=== PATIENT | female | born 1965 ===

== ENCOUNTER 2017-11-12 13:09 | Emergency (ER) | payer OTHER ==
[2017-11-12 13:09] VITALS: BMI 32.1
[2017-11-12] MEDS ORDERED: Lidocaine 1% Inj (20ml) IJ ONE (13:42)
[2017-11-12] MEDS ORDERED: Povidone Iodine Topical 10% Sol TOP ONE (13:43)
[2017-11-12] MEDS ORDERED: Povidone Iodine Oint 10% Foilpak UD ONE (13:45)
[2017-11-12] MEDS ORDERED: Lidocaine 2% w Epi 1:100,000 Inj IJ ONE (13:46)
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
[2017-11-12 15:03] VITALS: BP 145/82; PULSE 85; RESP 16; TEMP 98.2
[2017-11-12 15:06] VITALS: O2SAT 97
[2017-11-12 15:24] LABS: BASO # 0.1 K/uL (0.0-0.2); BASO % 0.7 % (0.0-2.0); EOS # 0.1 K/uL (0.0-0.7); EOS % 1.5 % (0.0-4.0); HEMOGLOBIN 13.2 g/dL (12.0-16.0); LYMPH # 2.1 K/uL (1.0-4.3); LYMPH % 21.5 % (20.0-40.0); MEAN CELL VOLUME 84.6 fl (81.0-99.0); MEAN CORPUSCULAR HEMOGLOBIN 28.2 pg (27.0-31.0); MEAN CORPUSCULAR HGB CONC 33.3 g/dL (33.0-37.0); MONO # 1.1 K/uL (0.0-0.8); MONO % 10.7 % (0.0-10.0); NEUT # 6.5 K/uL (1.8-7.0); NEUT % 65.6 % (50.0-75.0); PLATELET COUNT 194 K/uL (130-400); RED CELL DISTRIBUTION WIDTH 14.1 % (11.5-14.5); WHITE BLOOD COUNT 9.9 K/uL (4.8-10.8)
[2017-11-12 15:59] LABS: FLUID TYPE SYNOVIAL FLUID
[2017-11-12 16:25] LABS: ERYTHROCYTE SEDIMENTATION RATE 18 mm/hr (0-30)
[2017-11-12 17:04] LABS: SF GROSS APPEARANCE BLOODY (CLEAR)
[2017-11-12 17:05] LABS: SYNOVIAL FLUID COMMENT BLOODY
[2017-11-12 17:06] LABS: SYNOVIAL FLUID MONO/MACROPHAGE 12 % (0-0)
--- NOTE | 2017-11-13 02:18 | CON ---
Copied To: Micheline Kim MD Attending MD: Micheline Kim MD DATE: 11/12/2017 ER CONSULTATION NOTE. CHIEF COMPLAINT: Left knee swelling. HISTORY OF PRESENT ILLNESS: The patient is a 52-year-old female with a history of a symptomatic left total knee replacement, recurrent effusion. The patient has persistent pain and effusion despite physical therapy. Denies any fever or chills. She was examined at bedside. Denies any recent history of trauma or fall and complains of recurrent effusions. Denies any significant instability. PHYSICAL EXAMINATION VITAL SIGNS: The patient is afebrile. Vital signs are stable. EXTREMITIES: On examination, left knee trace effusion, range of motion is 0 to 120, stable to varus and valgus stress, tenderness to palpation in the medial joint line. Neurovascularly intact distally. ASSESSMENT: A 52-year-old female, status post left total knee replacement with symptomatic recurrent effusion. PROCEDURE: I presented the patient with the risks and benefits of the left knee aspiration to rule out any signs of infection or inflammatory markers. The risks included, but not limited to bleeding, infection, neurovascular damage, continued pain. The patient agreed with the risks and benefits and opted to proceed. First the skin was cleaned using Betadine sticks under sterile condition. Using an 18-gauge needle, 10 mL of serosanguineous fluid was aspirated and sent for cultures and cell count. TREATMENT: I explained to the patient, we will await for the cultures and cell count. Meanwhile, symptomatic treatment of antiinflammatory medication, icing, and we will follow up the results for further treatment and recommendations. Micheline Kim MD [facility]
== END 2017-11-12 15:03 | disposition home or self-care (01) ==
LOC: H.ER 13:09
DX: M25.462 Effusion, left knee (principal); Z96.652 Presence of left artificial knee joint; I10 Essential (primary) hypertension

== ENCOUNTER 2017-11-16 06:40 | Inpatient (IN) | payer OTHER ==
[2017-11-15 17:37] VITALS: BMI 34.2
[2017-11-16 08:53] LABS: BASO % 0.4 % (0.0-2.0); EOS # 0.2 K/uL (0.0-0.7); EOS % 1.8 % (0.0-4.0); HEMOGLOBIN 12.8 g/dL (12.0-16.0); LYMPH # 2.2 K/uL (1.0-4.3); LYMPH % 23.3 % (20.0-40.0); MEAN CELL VOLUME 84.5 fl (81.0-99.0); MEAN CORPUSCULAR HEMOGLOBIN 28.1 pg (27.0-31.0); MEAN CORPUSCULAR HGB CONC 33.2 g/dL (33.0-37.0); MONO # 1.1 K/uL (0.0-0.8); MONO % 11.7 % (0.0-10.0); NEUT % 62.8 % (50.0-75.0); NRBC % 0.1 % (0.0-0.0); RBC 4.56 Mil/uL (3.80-5.20); RED CELL DISTRIBUTION WIDTH 13.8 % (11.5-14.5); WHITE BLOOD COUNT 9.5 K/uL (4.8-10.8)
[2017-11-16] MEDS ORDERED: ceFAZolin IV 1 gm in Dextrose 2 GM/100 ML BAG IVPB ONE ×2 (12:03→12:48)
[2017-11-16] MEDS ORDERED: Bacitracin Ointment 30 GM TUBE ONE (12:48)
[2017-11-16] MEDS ORDERED: Gentamicin 80 mg/2mL Inj. ONE (12:48)
[2017-11-16] MEDS ORDERED: GELATIN SPONGE,ABSORB/PORCINE 1 EACH SPONGE TP ONE (12:49)
[2017-11-16] MEDS ORDERED: Thrombin Topical 5,000 Int Units Spray Kit ONE (12:49)
[2017-11-16] MEDS ORDERED: Lactated Ringer's 1,000 ML IV ONE ×2 (13:13→16:00)
[2017-11-16] MEDS ORDERED: Midazolam 2 MG/2 ML VIAL ONE (13:20)
[2017-11-16] MEDS ORDERED: Etomidate 20 mg/10ml Inj IV ONE (13:57)
[2017-11-16] MEDS ORDERED: Labetalol 5mg/ml (4ml) ONE (14:44)
[2017-11-16] MEDS ORDERED: Vancomycin 1 g Inj IVPB ONE (15:25)
[2017-11-16] MEDS ORDERED: Absorbable Gelatin Sponge Size 12-7 TP ONE (16:00)
[2017-11-16] MEDS ORDERED: ePHEDrine 50 mg/ml Inj ONE (16:03)
[2017-11-16] MEDS ORDERED: HYDROmorphone 1 mg/ml ISec ONE ×5 (17:09→18:40)
[2017-11-16] MEDS: HYDROmorphone 1 mg/ml ISec IVP PRN ×5 (17:10→18:40)
--- NOTE | 2017-11-16 17:11 | PCM.SURG1 ---
Surgeon's Initial Post Op Note - Surgeon's Notes Surgeon: Micheline Kim MD Network Contractor: Bharati Fuentes PA-C; Mario Stern PA-C Type of Anesthesia: General Endo Pre-Operative Diagnosis: Left knee total replacement hardware loosening/ infection Operative Findings: see op report Post-Operative Diagnosis: same as pre-op dx Operation Performed: Left knee removal of hardware, I&D and placement of antibiotic spacer Specimen/Specimens Removed: left knee soft tissue Estimated Blood Loss: EBL {In ML}: 250 Date of Surgery/Procedure: 11/16/17 Time of Surgery/Procedure: 14:00
--- NOTE | 2017-11-16 18:11 | RAD ---
Date of service: 11/16/2017 PROCEDURE: Left Knee Radiographs. HISTORY: Pain. COMPARISON: None. FINDINGS: BONES: Patient status post left knee replacement hardware removal with antibiotic spacers in position at this time. Normal alignment is appreciated overall. Postop soft tissue changes are identified which drain identified at the suprapatellar bursa region. JOINTS: As above. JOINT EFFUSION: As above. OTHER FINDINGS: None. IMPRESSION: Status post left knee replacement hardware removal with antibiotic spacers in position at this time. Postop changes as discussed above. No definitive fracture or dislocation identified at this time.
[2017-11-16] MEDS ORDERED: ceFAZolin IV 1 gm in Dextrose 1 GM/50 ML BAG IVPB ONE (20:00)
[2017-11-17] MEDS ORDERED: DAPTOmycin 500 MG in Sodium Chloride 0.9% 100 ML IVPB SCH ×2 (00:02→00:30)
[2017-11-17] MEDS: Cefepime 1 GM in Sodium Chloride 0.9% 100 ML IVPB SCH ×3 (01:24→16:57)
[2017-11-17] MEDS ORDERED: ceFAZolin IV 1 gm in Dextrose 1 GM/50 ML BAG IVPB ONE (02:00)
[2017-11-17] MEDS: DAPTOmycin 500 MG in Sodium Chloride 0.9% 100 ML IVPB SCH (03:10)
[2017-11-17] MEDS: Lactated Ringer's 1,000 ML IV SCH ×5 (03:15→23:15)
--- NOTE | 2017-11-17 03:50 | OP ---
Copied To: Micheline Kim MD Attending MD: Micheline Kim MD PROCEDURE DATE: 11/16/2017 PREOPERATIVE DIAGNOSES: 1. Left knee effusion and instability after total knee replacement. 2. Left knee infection after knee replacement. POSTOPERATIVE DIAGNOSES: 1. Left knee effusion and instability after total knee replacement. 2. Left knee infection after knee replacement. PROCEDURES: 1. Left knee arthrotomy and removal of previous total knee implant prosthesis. 2. Open synovectomy. 3. Antibiotic spacer/implants placement. SURGEON: Micheline Kim MD REAL ESTATE LEGAL SECRETARY: Bharati Fuentes PA-C ANESTHESIA TYPE: General. ESTIMATED BLOOD LOSS: 100 mL. COMPLICATIONS: None. HISTORY: The patient is a 52-year-old female who underwent left total knee replacement about 8 years ago. The patient had persistent pain and swelling, underwent bone scan which showed uptake, suggestive of loosening, which was confirmed by CT scan. The patient underwent aspiration in the ER which was suspicious for infection, and antiinflammatory markers were increased. I discussed with the patient. We will proceed with removal of prosthesis and antibiotic spacer placement. I reviewed the risks and benefits with the patient in detail, which included bleeding, infection, nerve/vessel damage, continued pain, stiffness, instability, infection, blood clots among others. The patient fully understood the risks and benefits and opted to proceed with the surgery. DESCRIPTION OF PROCEDURE: On the day of the procedure, the patient was brought into the preop holding area. A laterality sheet was completed, confirming the patient's left knee to be correct operative site. Informed consent was signed from the patient. She was brought into operating room table. She underwent general anesthesia. The left knee was draped and prepped in a standard sterile manner. First, a timeout was completed confirming the patient's left knee to be the correct operative site. First, the tourniquet was inflated to 350 mmHg. We will proceed with previous midline incision. Using a 10-blade, a standard medial parapatellar arthrotomy was formed. Multiple wound cultures and synovial cultures were sent. Next, we proceeded with a complete synovectomy using electrocautery. The knee joint was exposed, first the tibial using extreme caution. Multiple tools were used to remove the cement mantle. The cement mantle was in tibia and femoral prosthesis. The polyethylene insert was also removed, and after multiple attempts, the both implants femoral, patellar, and tibial components were removed. Next, the remaining cement mantle was also removed. The wound was copiously irrigated using 9 liters of pulse lavage solution on the back table, and Exactech spacer was used and replaced with vancomycin and gentamicin cement for temporary femoral and tibial plate with the spacer. Next, the wound was copiously irrigated. A Hemovac drain was placed. The arthrotomy was closed with monofilament sutures. The patient was placed in knee immobilizer, awakened from anesthesia, and taken to recovery room. Bharati Fuentes, the certified physician television production assistant, who was present for the entirety of the case as her participation was crucial in patient positioning, retraction of critical neurovascular structures, and successful completion of the surgery. Micheline Kim MD [facility]
[2017-11-17 07:28] LABS: BASO # 0.1 K/uL (0.0-0.2); BASO % 0.5 % (0.0-2.0); EOS # 0.1 K/uL (0.0-0.7); EOS % 0.5 % (0.0-4.0); HEMOGLOBIN 9.4 g/dL (12.0-16.0); LYMPH # 1.7 K/uL (1.0-4.3); LYMPH % 16.3 % (20.0-40.0); MEAN CELL VOLUME 84.4 fl (81.0-99.0); MEAN CORPUSCULAR HEMOGLOBIN 28.4 pg (27.0-31.0); MEAN CORPUSCULAR HGB CONC 33.7 g/dL (33.0-37.0); MEAN PLATELET VOLUME 10.8 fl (7.2-11.7); MONO # 1.2 K/uL (0.0-0.8); MONO % 11.8 % (0.0-10.0); NEUT # 7.3 K/uL (1.8-7.0); NEUT % 70.9 % (50.0-75.0); RBC 3.3 Mil/uL (3.80-5.20); WHITE BLOOD COUNT 10.3 K/uL (4.8-10.8)
[2017-11-17 07:45] LABS: ALB/GLOB RATIO 1.2 (1.0-2.1); ALBUMIN 3.1 g/dL (3.5-5.0); ALT/SGPT 90 U/L (9-52); AST/SGOT 74 U/L (14-36); BLOOD UREA NITROGEN 10 mg/dl (7-17); CALCIUM 8.1 mg/dL (8.4-10.2); GFR NON-AFRICAN AMERICAN > 60
[2017-11-17] MEDS: oxyCODONE 5 mg Immediate Release Tab PO PRN ×2 (08:37→16:51)
[2017-11-17] MEDS: Pantoprazole 40 mg EC Tab PO SCH (10:28)
[2017-11-17] MEDS ORDERED: Oxycodone/Acetaminophen 5/325 mg Tab PO PRN (10:30)
--- NOTE | 2017-11-17 15:49 | CP.PCM.PN ---
Subjective - Date & Time of Evaluation Date of Evaluation: 11/17/17 Time of Evaluation: 15:30 - Subjective Subjective: 52 yo F s/p Left knee TKR removal of hardware, I&D and placement of abx spacer POD#1 Pt seen and examined at bedside, comfortable, in NAD Pt c/o moderate left knee pain Pt denies any SOB, chest pain, fever/chills, lightheadedness, N/V/D, numbness/ tingling LLE Objective - Vital Signs/Intake and Output Vital Signs (last 24 hours): Temp Pulse Resp BP Pulse Ox 99.2 F 103 H 20 134/82 97 11/17/17 08:31 11/17/17 11:08 11/17/17 08:31 11/17/17 08:31 11/17/17 11:08 Intake and Output: 11/17/17 11/17/17 06:59 18:59 Intake Total 50 Output Total 125 Balance -75 - Medications Medications: Current Medications Acetaminophen (Tylenol 325mg Tab) 325 mg PO Q4 PRN PRN Reason: pain1-3 Aspirin (Aspirin) 325 mg PO BID [facility] Last Admin: 11/17/17 10:12 Dose: 325 mg Docusate Sodium (Colace) 100 mg PO BID [facility] Last Admin: 11/17/17 10:13 Dose: 100 mg Hydromorphone HCl (Dilaudid 0.2 Mg/Ml Project Associate) 0 mg IV PRN PRN; Protocol PRN Reason: Pain, moderate (4-7) Last Admin: 11/17/17 10:58 Dose: 0.2 mg Lactated Ringer's (Lactated Ringer's) 1,000 mls @ 100 mls/hr IV .Q10H [facility] Last Admin: 11/17/17 06:19 Dose: 100 mls/hr Cefepime HCl 1 gm/ Sodium (Chloride) 100 mls @ 100 mls/hr IVPB Q8 [facility] PRN Reason: Protocol Last Admin: 11/17/17 10:13 Dose: 100 mls/hr Daptomycin 500 mg/ Sodium (Chloride) 100 mls @ 100 mls/hr IVPB DAILY@0300 [facility] PRN Reason: Protocol Stop: 11/22/17 00:31 Last Admin: 11/17/17 03:10 Dose: 100 mls/hr Naproxen (Naproxen) 500 mg PO BID [facility] Oxycodone HCl (Oxycodone Immediate Release Tab) 5 mg PO Q4 PRN PRN Reason: pain4-7 Last Admin: 11/17/17 08:37 Dose: 5 mg Pantoprazole Sodium (Protonix Ec Tab) 40 mg PO DAILY [facility] Last Admin: 11/17/17 10:28 Dose: 40 mg - Labs Labs: 11/17/17 05:30 11/17/17 05:30 - Constitutional Appears: Well, No Acute Distress - Respiratory Exam Respiratory Exam: Clear to Ausculation Bilateral, NORMAL BREATHING PATTERN - Cardiovascular Exam Cardiovascular Exam: REGULAR RHYTHM, RRR - Extremities Exam Additional comments: LLE: Immobilizer in place Dressing C/D/I, PICCO dressing functioning well Drain in place, functioning well, 50cc bloody output Calves soft and nontender b/l Distal pulses wnl No foot drop Normal ROM left ankle Assessment and Plan - Assessment and Plan (Free Text) Assessment: 52 yo F s/p Left knee TKR removal of hardware, I&D and placement of abx spacer POD#1 Plan: Pain Control DVT ppx- aspirin 325mg BID SCD b/l LE Incentive Spirometer PT/OT - NWB LLE, keep in knee immobilizer Continue abx- ID recs appreciated F/U labs and cultures; h/h stable Continue current management Will follow Discussed with Dr. Kim
[2017-11-17] MEDS: Naproxen 500 MG TAB PO SCH (16:54)
[2017-11-17] MEDS: oxyCODONE 10 mg ER Tab (oxyCONTIN) PO SCH (20:24)
[2017-11-18] MEDS: Cefepime 1 GM in Sodium Chloride 0.9% 100 ML IVPB SCH ×3 (00:39→16:53)
[2017-11-18] MEDS: oxyCODONE 5 mg Immediate Release Tab PO PRN ×2 (00:39→04:11)
[2017-11-18] MEDS: DAPTOmycin 500 MG in Sodium Chloride 0.9% 100 ML IVPB SCH (03:04)
[2017-11-18 06:57] LABS: BASO % 0.3 % (0.0-2.0); EOS # 0.1 K/uL (0.0-0.7); EOS % 1.1 % (0.0-4.0); HEMOGLOBIN 8.5 g/dL (12.0-16.0); LYMPH # 1.6 K/uL (1.0-4.3); LYMPH % 16.2 % (20.0-40.0); MEAN CORPUSCULAR HEMOGLOBIN 28.7 pg (27.0-31.0); MEAN CORPUSCULAR HGB CONC 34.2 g/dL (33.0-37.0); MEAN PLATELET VOLUME 10.6 fl (7.2-11.7); MONO # 1.3 K/uL (0.0-0.8); MONO % 12.9 % (0.0-10.0); NEUT # 6.8 K/uL (1.8-7.0); NEUT % 69.5 % (50.0-75.0); RBC 2.96 Mil/uL (3.80-5.20); RED CELL DISTRIBUTION WIDTH 13.9 % (11.5-14.5); WHITE BLOOD COUNT 9.7 K/uL (4.8-10.8)
[2017-11-18 07:56] LABS: BLOOD UREA NITROGEN 4 mg/dl (7-17); CALCIUM 8.3 mg/dL (8.4-10.2); GFR NON-AFRICAN AMERICAN > 60
[2017-11-18] MEDS ORDERED: oxyCODONE 10 mg Immediate Release Tab PO STA (08:05)
[2017-11-18] MEDS: Naproxen 500 MG TAB PO SCH ×2 (08:17→16:50)
[2017-11-18] MEDS: Pantoprazole 40 mg EC Tab PO SCH (08:17)
[2017-11-18] MEDS: oxyCODONE 10 mg ER Tab (oxyCONTIN) PO SCH ×2 (08:43→21:18)
[2017-11-18] MEDS: Lactated Ringer's 1,000 ML IV SCH ×2 (08:50→19:15)
[2017-11-18] MEDS: oxyCODONE 10 mg Immediate Release Tab PO PRN ×2 (13:00→16:56)
[2017-11-18] MEDS ORDERED: Potassium Chloride 20 mEq ER Tab PO ONE (20:30)
[2017-11-19] MEDS: Cefepime 1 GM in Sodium Chloride 0.9% 100 ML IVPB SCH ×3 (01:14→16:06)
[2017-11-19] MEDS: DAPTOmycin 500 MG in Sodium Chloride 0.9% 100 ML IVPB SCH (03:12)
[2017-11-19 06:16] LABS: BASO % 0.4 % (0.0-2.0); EOS # 0.2 K/uL (0.0-0.7); EOS % 2.7 % (0.0-4.0); HEMOGLOBIN 7.8 g/dL (12.0-16.0); LYMPH # 2.2 K/uL (1.0-4.3); LYMPH % 24.4 % (20.0-40.0); MEAN CELL VOLUME 85.1 fl (81.0-99.0); MEAN CORPUSCULAR HEMOGLOBIN 28.5 pg (27.0-31.0); MEAN CORPUSCULAR HGB CONC 33.5 g/dL (33.0-37.0); MEAN PLATELET VOLUME 10.6 fl (7.2-11.7); MONO # 1.3 K/uL (0.0-0.8); MONO % 14.7 % (0.0-10.0); NEUT # 5.1 K/uL (1.8-7.0); NEUT % 57.8 % (50.0-75.0); RBC 2.75 Mil/uL (3.80-5.20); RED CELL DISTRIBUTION WIDTH 14.2 % (11.5-14.5); WHITE BLOOD COUNT 8.9 K/uL (4.8-10.8)
[2017-11-19 06:36] LABS: BLOOD UREA NITROGEN 7 mg/dl (7-17); CALCIUM 8.3 mg/dL (8.4-10.2); GFR NON-AFRICAN AMERICAN > 60
[2017-11-19] MEDS: Lactated Ringer's 1,000 ML IV SCH (06:58)
[2017-11-19] MEDS: oxyCODONE 10 mg ER Tab (oxyCONTIN) PO SCH ×2 (08:41→21:36)
[2017-11-19] MEDS: Pantoprazole 40 mg EC Tab PO SCH (08:42)
[2017-11-19] MEDS: Naproxen 500 MG TAB PO SCH ×2 (08:48→16:08)
[2017-11-19] MEDS: Potassium Chloride 20 mEq ER Tab PO SCH (08:48)
[2017-11-19 09:44] LABS: FLUID CRYSTALS NEGATIVE (NEGATIVE)
[2017-11-19] MEDS: oxyCODONE 10 mg Immediate Release Tab PO PRN ×2 (10:28→16:35)
--- NOTE | 2017-11-19 10:36 | CP.PCM.PN ---
Subjective - Date & Time of Evaluation Date of Evaluation: 11/19/17 Time of Evaluation: 08:30 - Subjective Subjective: Patient seen and examined at bedside comfortable. Pain well controlled. Has not seen PT over weekend due to high BP and dizziness. Reports no CP/SOB/dizziness today. No acute events overnight. Objective - Vital Signs/Intake and Output Vital Signs (last 24 hours): Temp Pulse Resp BP Pulse Ox 98.4 F 91 H 20 136/81 97 11/19/17 08:21 11/19/17 08:49 11/19/17 08:21 11/19/17 08:49 11/19/17 08:21 - Medications Medications: Current Medications Acetaminophen (Tylenol 325mg Tab) 325 mg PO Q4 PRN PRN Reason: pain1-3 Amlodipine Besylate (Norvasc) 5 mg PO DAILY [facility] Last Admin: 11/19/17 08:49 Dose: 5 mg Aspirin (Aspirin) 325 mg PO BID [facility] Last Admin: 11/19/17 08:44 Dose: 325 mg Carvedilol (Coreg) 25 mg PO BID [facility] Last Admin: 11/19/17 08:46 Dose: 25 mg Cyclobenzaprine HCl (Flexeril) 10 mg PO HS PRN PRN Reason: Muscle spasm Docusate Sodium (Colace) 100 mg PO BID [facility] Last Admin: 11/19/17 08:45 Dose: 100 mg Ferrous Sulfate (Feosol) 325 mg PO DAILY [facility] Last Admin: 11/19/17 08:48 Dose: 325 mg Lactated Ringer's (Lactated Ringer's) 1,000 mls @ 100 mls/hr IV .Q10H [facility] Last Admin: 11/19/17 06:58 Dose: Not Given Cefepime HCl 1 gm/ Sodium (Chloride) 100 mls @ 100 mls/hr IVPB Q8 [facility] PRN Reason: Protocol Last Admin: 11/19/17 08:50 Dose: 100 mls/hr Daptomycin 500 mg/ Sodium (Chloride) 100 mls @ 100 mls/hr IVPB DAILY@0300 [facility] PRN Reason: Protocol Stop: 11/22/17 00:31 Last Admin: 11/19/17 03:12 Dose: 100 mls/hr Losartan Potassium (Cozaar) 50 mg PO DAILY [facility] Last Admin: 11/19/17 08:47 Dose: 50 mg Naproxen (Naproxen) 500 mg PO BID [facility] Last Admin: 11/19/17 08:48 Dose: 500 mg Oxycodone HCl (Oxycodone Immediate Release Tab) 5 mg PO Q4 PRN PRN Reason: pain4-7 Last Admin: 11/18/17 04:11 Dose: 5 mg Oxycodone HCl (Oxycontin Extended Release Tab) 10 mg PO Q12 [facility] Stop: 11/30/17 21:01 Last Admin: 11/19/17 08:41 Dose: 10 mg Oxycodone HCl (Oxycodone Immediate Release Tab) 10 mg PO Q4 PRN PRN Reason: Pain, severe (8-10) Last Admin: 11/19/17 10:28 Dose: 10 mg Pantoprazole Sodium (Protonix Ec Tab) 40 mg PO DAILY [facility] Last Admin: 11/19/17 08:42 Dose: 40 mg Potassium Chloride (K-Dur 20 Meq Er Tab) 20 meq PO DAILY [facility] Last Admin: 11/19/17 08:48 Dose: 20 meq Zolpidem Tartrate (Ambien) 5 mg PO HS PRN PRN Reason: Insomnia Last Admin: 11/18/17 22:18 Dose: 5 mg - Labs Labs: 11/19/17 05:40 11/19/17 05:40 - Extremities Exam Additional comments: L knee: knee imm intact, ANTWON soaked with bloody drainage, drain intact with minimal drainage (40cc overnight) sensation intact SP/DP/TN motor intact EHL/FHL/TA/G pedal pulses intact comps soft NT Assessment and Plan (1) Infection of total left knee replacement Assessment & Plan: POD#3 s/p L knee removal of hardware and placement abx spacer -pain control -PT/OT NWB LLE -ANTWON removed, Drain removed, dressings changed to dry dressings -maintain knee immobilizer -abx as per ID, awaiting PICC line insertion -discharge planning -above d/w Dr. Kim in agreement Status: Acute
[2017-11-19] MEDS ORDERED: Iron Sucrose 100 mg/5 ml Inj IVP SCH (12:30)
[2017-11-19] MEDS ORDERED: Iron Sucrose 100 mg/5 ml Inj IVPB SCH (13:14)
[2017-11-19] MEDS: Bacitracin OINT 15GM TOP SCH (16:00)
--- NOTE | 2017-11-19 21:03 | CP.PCM.PN ---
Subjective - Date & Time of Evaluation Date of Evaluation: 11/19/17 Time of Evaluation: 13:45 - Subjective Subjective: 52 yo F s/p Left knee TKR removal of hardware, I&D and placement of abx spacer POD#3 Pt seen and examined at bedside, comfortable, in NAD Pt c/o moderate left knee pain Pt denies any SOB, chest pain, fever/chills, lightheadedness, N/V/D, numbness/ tingling LLE Objective - Vital Signs/Intake and Output Vital Signs (last 24 hours): Temp Pulse Resp BP Pulse Ox 98.5 F 83 20 90/58 L 100 11/19/17 18:14 11/19/17 18:14 11/19/17 18:14 11/19/17 18:14 11/19/17 15:43 Intake and Output: 11/19/17 11/20/17 18:59 06:59 Intake Total 0 294 Balance 0 294 - Medications Medications: Current Medications Acetaminophen (Tylenol 325mg Tab) 325 mg PO Q4 PRN PRN Reason: pain1-3 Amlodipine Besylate (Norvasc) 5 mg PO DAILY [facility] Last Admin: 11/19/17 08:49 Dose: 5 mg Aspirin (Aspirin) 325 mg PO BID [facility] Last Admin: 11/19/17 16:00 Dose: 325 mg Bacitracin (Bacitracin Oint) 1 applic TOP BID [facility] Last Admin: 11/19/17 16:00 Dose: 1 applic Carvedilol (Coreg) 25 mg PO BID [facility] Last Admin: 11/19/17 16:04 Dose: 25 mg Cyclobenzaprine HCl (Flexeril) 10 mg PO HS PRN PRN Reason: Muscle spasm Docusate Sodium (Colace) 100 mg PO TID [facility] Last Admin: 11/19/17 16:02 Dose: 100 mg Ferrous Sulfate (Feosol) 325 mg PO TID [facility] Last Admin: 11/19/17 16:03 Dose: 325 mg Lactated Ringer's (Lactated Ringer's) 1,000 mls @ 100 mls/hr IV .Q10H [facility] Last Admin: 11/19/17 06:58 Dose: Not Given Cefepime HCl 1 gm/ Sodium (Chloride) 100 mls @ 100 mls/hr IVPB Q8 [facility] PRN Reason: Protocol Last Admin: 11/19/17 16:06 Dose: 100 mls/hr Daptomycin 500 mg/ Sodium (Chloride) 100 mls @ 100 mls/hr IVPB DAILY@0300 [facility] PRN Reason: Protocol Stop: 11/22/17 00:31 Last Admin: 11/19/17 03:12 Dose: 100 mls/hr Iron Sucrose 100 mg/ Sodium (Chloride) 105 mls @ 105 mls/hr IVPB DAILY [facility] Losartan Potassium (Cozaar) 50 mg PO DAILY [facility] Last Admin: 11/19/17 08:47 Dose: 50 mg Naproxen (Naproxen) 500 mg PO BID [facility] Last Admin: 11/19/17 16:08 Dose: 500 mg Oxycodone HCl (Oxycodone Immediate Release Tab) 5 mg PO Q4 PRN PRN Reason: pain4-7 Last Admin: 11/18/17 04:11 Dose: 5 mg Oxycodone HCl (Oxycontin Extended Release Tab) 10 mg PO Q12 [facility] Stop: 11/30/17 21:01 Last Admin: 11/19/17 08:41 Dose: 10 mg Oxycodone HCl (Oxycodone Immediate Release Tab) 10 mg PO Q4 PRN PRN Reason: Pain, severe (8-10) Last Admin: 11/19/17 16:35 Dose: 10 mg Pantoprazole Sodium (Protonix Ec Tab) 40 mg PO DAILY [facility] Last Admin: 11/19/17 08:42 Dose: 40 mg Potassium Chloride (K-Dur 20 Meq Er Tab) 20 meq PO DAILY [facility] Last Admin: 11/19/17 08:48 Dose: 20 meq Zolpidem Tartrate (Ambien) 5 mg PO HS PRN PRN Reason: Insomnia Last Admin: 11/18/17 22:18 Dose: 5 mg - Labs Labs: 11/19/17 05:40 11/19/17 05:40 - Constitutional Appears: Well, No Acute Distress - Respiratory Exam Respiratory Exam: Clear to Ausculation Bilateral, NORMAL BREATHING PATTERN - Cardiovascular Exam Cardiovascular Exam: REGULAR RHYTHM, RRR - Extremities Exam Additional comments: LLE: Immobilizer in place Dressing C/D/I Calves soft and nontender b/l N/V intact distally Distal pulses wnl No foot drop Normal ROM left ankle Assessment and Plan - Assessment and Plan (Free Text) Assessment: 52 yo F s/p Left knee TKR removal of hardware, I&D and placement of abx spacer POD#3 Plan: Pain Control DVT ppx- aspirin 325mg BID SCD b/l LE Incentive Spirometer PT/OT - NWB LLE, keep in knee immobilizer Continue abx- ID recs appreciated F/U labs and cultures; h/h stable D/C planning pending PICC insertion and ID recs Will follow Discussed with Dr. Kim
[2017-11-20] MEDS: Cefepime 1 GM in Sodium Chloride 0.9% 100 ML IVPB SCH ×3 (01:01→18:28)
[2017-11-20] MEDS: DAPTOmycin 500 MG in Sodium Chloride 0.9% 100 ML IVPB SCH (04:22)
[2017-11-20 06:40] LABS: HEMOGLOBIN 8.8 g/dL (12.0-16.0); MEAN CELL VOLUME 85.1 fl (81.0-99.0); MEAN CORPUSCULAR HEMOGLOBIN 28.4 pg (27.0-31.0); MEAN CORPUSCULAR HGB CONC 33.4 g/dL (33.0-37.0); RBC 3.1 Mil/uL (3.80-5.20); RED CELL DISTRIBUTION WIDTH 14.1 % (11.5-14.5)
[2017-11-20 06:57] LABS: BLOOD UREA NITROGEN 7 mg/dl (7-17); CALCIUM 8.2 mg/dL (8.4-10.2); GFR NON-AFRICAN AMERICAN > 60
[2017-11-20] MEDS: oxyCODONE 10 mg Immediate Release Tab PO PRN ×3 (07:54→22:17)
--- NOTE | 2017-11-20 08:59 | CP.PCM.PN ---
Subjective - Date & Time of Evaluation Date of Evaluation: 11/20/17 Time of Evaluation: 07:45 - Subjective Subjective: Patient seen and examined at bedside. Pain well controlled. No new complaints. Denies CP/SOB/N/V/D/fever. Objective - Vital Signs/Intake and Output Vital Signs (last 24 hours): Temp Pulse Resp BP Pulse Ox 98.5 F 85 20 150/81 98 11/20/17 08:02 11/20/17 08:02 11/20/17 08:02 11/20/17 08:02 11/20/17 08:02 Intake and Output: 11/20/17 11/20/17 06:59 18:59 Intake Total 294 Balance 294 - Medications Medications: Current Medications Acetaminophen (Tylenol 325mg Tab) 325 mg PO Q4 PRN PRN Reason: pain1-3 Amlodipine Besylate (Norvasc) 5 mg PO DAILY [facility] Last Admin: 11/19/17 08:49 Dose: 5 mg Aspirin (Aspirin) 325 mg PO BID [facility] Last Admin: 11/19/17 16:00 Dose: 325 mg Bacitracin (Bacitracin Oint) 1 applic TOP BID [facility] Last Admin: 11/19/17 16:00 Dose: 1 applic Carvedilol (Coreg) 25 mg PO BID [facility] Last Admin: 11/19/17 16:04 Dose: 25 mg Cyclobenzaprine HCl (Flexeril) 10 mg PO HS PRN PRN Reason: Muscle spasm Docusate Sodium (Colace) 100 mg PO TID [facility] Last Admin: 11/19/17 16:02 Dose: 100 mg Ferrous Sulfate (Feosol) 325 mg PO TID [facility] Last Admin: 11/19/17 16:03 Dose: 325 mg Lactated Ringer's (Lactated Ringer's) 1,000 mls @ 100 mls/hr IV .Q10H [facility] Last Admin: 11/19/17 06:58 Dose: Not Given Cefepime HCl 1 gm/ Sodium (Chloride) 100 mls @ 100 mls/hr IVPB Q8 [facility] PRN Reason: Protocol Last Admin: 11/20/17 01:01 Dose: 100 mls/hr Daptomycin 500 mg/ Sodium (Chloride) 100 mls @ 100 mls/hr IVPB DAILY@0300 [facility] PRN Reason: Protocol Stop: 11/22/17 00:31 Last Admin: 11/20/17 04:22 Dose: 100 mls/hr Iron Sucrose 100 mg/ Sodium (Chloride) 105 mls @ 105 mls/hr IVPB DAILY [facility] Losartan Potassium (Cozaar) 50 mg PO DAILY [facility] Last Admin: 11/19/17 08:47 Dose: 50 mg Naproxen (Naproxen) 500 mg PO BID [facility] Last Admin: 11/19/17 16:08 Dose: 500 mg Oxycodone HCl (Oxycodone Immediate Release Tab) 5 mg PO Q4 PRN PRN Reason: pain4-7 Last Admin: 11/18/17 04:11 Dose: 5 mg Oxycodone HCl (Oxycontin Extended Release Tab) 10 mg PO Q12 [facility] Stop: 11/30/17 21:01 Last Admin: 11/19/17 21:36 Dose: 10 mg Oxycodone HCl (Oxycodone Immediate Release Tab) 10 mg PO Q4 PRN PRN Reason: Pain, severe (8-10) Last Admin: 11/20/17 07:54 Dose: 10 mg Pantoprazole Sodium (Protonix Ec Tab) 40 mg PO DAILY [facility] Last Admin: 11/19/17 08:42 Dose: 40 mg Potassium Chloride (K-Dur 20 Meq Er Tab) 20 meq PO DAILY [facility] Last Admin: 11/19/17 08:48 Dose: 20 meq Zolpidem Tartrate (Ambien) 5 mg PO HS PRN PRN Reason: Insomnia Last Admin: 11/19/17 23:32 Dose: 5 mg - Labs Labs: 11/20/17 06:15 11/20/17 06:15 - Extremities Exam Additional comments: L knee: knee imm intact, Dressings CDI drain intact, wound CDI with nylon sutures sensation intact SP/DP/TN motor intact EHL/FHL/TA/G pedal pulses intact comps soft NT Assessment and Plan (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 Kim in agreement Status: Acute
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
--- NOTE | 2017-11-20 09:48 | CP.PCM.PN ---
Subjective - Date & Time of Evaluation Date of Evaluation: 11/18/17 Time of Evaluation: 09:30 - Subjective Subjective: Patient is doing well Has a lot of pain on the left knee Has no fever. Objective - Vital Signs/Intake and Output Vital Signs (last 24 hours): Temp Pulse Resp BP Pulse Ox 98.5 F 85 20 150/81 98 11/20/17 08:02 11/20/17 08:02 11/20/17 08:02 11/20/17 08:02 11/20/17 08:02 Intake and Output: 11/20/17 11/20/17 06:59 18:59 Intake Total 294 Balance 294 - Medications Medications: Current Medications Acetaminophen (Tylenol 325mg Tab) 325 mg PO Q4 PRN PRN Reason: pain1-3 Amlodipine Besylate (Norvasc) 5 mg PO DAILY [facility] Last Admin: 11/19/17 08:49 Dose: 5 mg Aspirin (Aspirin) 325 mg PO BID [facility] Last Admin: 11/19/17 16:00 Dose: 325 mg Bacitracin (Bacitracin Oint) 1 applic TOP BID [facility] Last Admin: 11/19/17 16:00 Dose: 1 applic Carvedilol (Coreg) 25 mg PO BID [facility] Last Admin: 11/19/17 16:04 Dose: 25 mg Cyclobenzaprine HCl (Flexeril) 10 mg PO HS PRN PRN Reason: Muscle spasm Docusate Sodium (Colace) 100 mg PO TID [facility] Last Admin: 11/19/17 16:02 Dose: 100 mg Ferrous Sulfate (Feosol) 325 mg PO TID [facility] Last Admin: 11/19/17 16:03 Dose: 325 mg Lactated Ringer's (Lactated Ringer's) 1,000 mls @ 100 mls/hr IV .Q10H [facility] Last Admin: 11/19/17 06:58 Dose: Not Given Cefepime HCl 1 gm/ Sodium (Chloride) 100 mls @ 100 mls/hr IVPB Q8 [facility] PRN Reason: Protocol Last Admin: 11/20/17 01:01 Dose: 100 mls/hr Daptomycin 500 mg/ Sodium (Chloride) 100 mls @ 100 mls/hr IVPB DAILY@0300 [facility] PRN Reason: Protocol Stop: 11/22/17 00:31 Last Admin: 11/20/17 04:22 Dose: 100 mls/hr Iron Sucrose 100 mg/ Sodium (Chloride) 105 mls @ 105 mls/hr IVPB DAILY [facility] Losartan Potassium (Cozaar) 50 mg PO DAILY [facility] Last Admin: 11/19/17 08:47 Dose: 50 mg Naproxen (Naproxen) 500 mg PO BID [facility] Last Admin: 11/19/17 16:08 Dose: 500 mg Oxycodone HCl (Oxycodone Immediate Release Tab) 5 mg PO Q4 PRN PRN Reason: pain4-7 Last Admin: 11/18/17 04:11 Dose: 5 mg Oxycodone HCl (Oxycontin Extended Release Tab) 10 mg PO Q12 [facility] Stop: 11/30/17 21:01 Last Admin: 11/19/17 21:36 Dose: 10 mg Oxycodone HCl (Oxycodone Immediate Release Tab) 10 mg PO Q4 PRN PRN Reason: Pain, severe (8-10) Last Admin: 11/20/17 07:54 Dose: 10 mg Pantoprazole Sodium (Protonix Ec Tab) 40 mg PO DAILY [facility] Last Admin: 11/19/17 08:42 Dose: 40 mg Potassium Chloride (K-Dur 20 Meq Er Tab) 20 meq PO DAILY [facility] Last Admin: 11/19/17 08:48 Dose: 20 meq Zolpidem Tartrate (Ambien) 5 mg PO HS PRN PRN Reason: Insomnia Last Admin: 11/19/17 23:32 Dose: 5 mg - Labs Labs: 11/20/17 06:15 11/20/17 06:15
--- NOTE | 2017-11-20 09:49 | CP.PCM.PN ---
Subjective - Date & Time of Evaluation Date of Evaluation: 11/19/17 Time of Evaluation: 10:00 - Subjective Subjective: Patient feels better Has no fever, Has probelms with constipation. Had better sleep with ambien. Objective - Vital Signs/Intake and Output Vital Signs (last 24 hours): Temp Pulse Resp BP Pulse Ox 98.5 F 85 20 150/81 98 11/20/17 08:02 11/20/17 08:02 11/20/17 08:02 11/20/17 08:02 11/20/17 08:02 Intake and Output: 11/20/17 11/20/17 06:59 18:59 Intake Total 294 Balance 294 - Medications Medications: Current Medications Acetaminophen (Tylenol 325mg Tab) 325 mg PO Q4 PRN PRN Reason: pain1-3 Amlodipine Besylate (Norvasc) 5 mg PO DAILY [facility] Last Admin: 11/19/17 08:49 Dose: 5 mg Aspirin (Aspirin) 325 mg PO BID [facility] Last Admin: 11/19/17 16:00 Dose: 325 mg Bacitracin (Bacitracin Oint) 1 applic TOP BID [facility] Last Admin: 11/19/17 16:00 Dose: 1 applic Carvedilol (Coreg) 25 mg PO BID [facility] Last Admin: 11/19/17 16:04 Dose: 25 mg Cyclobenzaprine HCl (Flexeril) 10 mg PO HS PRN PRN Reason: Muscle spasm Docusate Sodium (Colace) 100 mg PO TID [facility] Last Admin: 11/19/17 16:02 Dose: 100 mg Ferrous Sulfate (Feosol) 325 mg PO TID [facility] Last Admin: 11/19/17 16:03 Dose: 325 mg Lactated Ringer's (Lactated Ringer's) 1,000 mls @ 100 mls/hr IV .Q10H [facility] Last Admin: 11/19/17 06:58 Dose: Not Given Cefepime HCl 1 gm/ Sodium (Chloride) 100 mls @ 100 mls/hr IVPB Q8 [facility] PRN Reason: Protocol Last Admin: 11/20/17 01:01 Dose: 100 mls/hr Daptomycin 500 mg/ Sodium (Chloride) 100 mls @ 100 mls/hr IVPB DAILY@0300 [facility] PRN Reason: Protocol Stop: 11/22/17 00:31 Last Admin: 11/20/17 04:22 Dose: 100 mls/hr Iron Sucrose 100 mg/ Sodium (Chloride) 105 mls @ 105 mls/hr IVPB DAILY [facility] Losartan Potassium (Cozaar) 50 mg PO DAILY [facility] Last Admin: 11/19/17 08:47 Dose: 50 mg Naproxen (Naproxen) 500 mg PO BID [facility] Last Admin: 11/19/17 16:08 Dose: 500 mg Oxycodone HCl (Oxycodone Immediate Release Tab) 5 mg PO Q4 PRN PRN Reason: pain4-7 Last Admin: 11/18/17 04:11 Dose: 5 mg Oxycodone HCl (Oxycontin Extended Release Tab) 10 mg PO Q12 [facility] Stop: 11/30/17 21:01 Last Admin: 11/19/17 21:36 Dose: 10 mg Oxycodone HCl (Oxycodone Immediate Release Tab) 10 mg PO Q4 PRN PRN Reason: Pain, severe (8-10) Last Admin: 11/20/17 07:54 Dose: 10 mg Pantoprazole Sodium (Protonix Ec Tab) 40 mg PO DAILY [facility] Last Admin: 11/19/17 08:42 Dose: 40 mg Potassium Chloride (K-Dur 20 Meq Er Tab) 20 meq PO DAILY [facility] Last Admin: 11/19/17 08:48 Dose: 20 meq Zolpidem Tartrate (Ambien) 5 mg PO HS PRN PRN Reason: Insomnia Last Admin: 11/19/17 23:32 Dose: 5 mg - Labs Labs: 11/20/17 06:15 11/20/17 06:15
--- NOTE | 2017-11-20 09:50 | CP.PCM.DIS ---
Provider - Provider Date of Admission: 11/16/17 17:11 Attending physician: Zeke Cates MD Primary care physician: Umberto Hernández MD Hospital Course - Lab Results Lab Results: Micro Results 11/16/17 14:43 Knee - Left Gram Stain - Final 11/16/17 14:43 Knee - Left Wound Culture - Final No growth. 11/16/17 14:43 Knee - Left Gram Stain - Final 11/16/17 14:43 Knee - Left Wound Culture - Final No growth. 11/16/17 14:43 Knee - Left Gram Stain - Final 11/16/17 14:43 Knee - Left Wound Culture - Final No growth. 11/16/17 14:43 Knee - Left Gram Stain - Final 11/16/17 14:43 Knee - Left Wound Culture - Final No growth. 11/16/17 14:43 Knee - Left Gram Stain - Final 11/16/17 14:43 Knee - Left Wound Culture - Preliminary No growth. 11/16/17 14:43 Knee - Left Anaerobic Culture - Final NO ANAEROBES ISOLATED. Most Recent Lab Values WBC 9.0 K/uL (4.8-10.8) 11/20/17 06:15 RBC 3.10 Mil/uL (3.80-5.20) L 11/20/17 06:15 Hgb 8.8 g/dL (12.0-16.0) L 11/20/17 06:15 Hct 26.4 % (34.0-47.0) L 11/20/17 06:15 MCV 85.1 fl (81.0-99.0) 11/20/17 06:15 MCH 28.4 pg (27.0-31.0) 11/20/17 06:15 MCHC 33.4 g/dL (33.0-37.0) 11/20/17 06:15 RDW 14.1 % (11.5-14.5) 11/20/17 06:15 Plt Count 183 K/uL (130-400) 11/20/17 06:15 MPV 10.6 fl (7.2-11.7) 11/19/17 05:40 Neut % (Auto) 57.8 % (50.0-75.0) 11/19/17 05:40 Lymph % (Auto) 24.4 % (20.0-40.0) 11/19/17 05:40 Becker % (Auto) 14.7 % (0.0-10.0) H 11/19/17 05:40 Eos % (Auto) 2.7 % (0.0-4.0) 11/19/17 05:40 Baso % (Auto) 0.4 % (0.0-2.0) 11/19/17 05:40 Neut # (Auto) 5.1 K/uL (1.8-7.0) 11/19/17 05:40 Lymph # (Auto) 2.2 K/uL (1.0-4.3) 11/19/17 05:40 Becker # (Auto) 1.3 K/uL (0.0-0.8) H 11/19/17 05:40 Eos # (Auto) 0.2 K/uL (0.0-0.7) 11/19/17 05:40 Baso # (Auto) 0.0 K/uL (0.0-0.2) 11/19/17 05:40 ESR 17 mm/hr (0-30) 11/17/17 05:30 Sodium 140 mmol/l (132-148) 11/20/17 06:15 Potassium 3.4 MMOL/L (3.6-5.0) L 11/20/17 06:15 Chloride 108 mmol/L (98-107) H 11/20/17 06:15 Carbon Dioxide 29 mmol/L (22-30) 11/20/17 06:15 Anion Gap 6 (10-20) L 11/20/17 06:15 BUN 7 mg/dl (7-17) 11/20/17 06:15 Creatinine 0.6 mg/dl (0.7-1.2) L 11/20/17 06:15 Est GFR ( Amer) > 60 11/20/17 06:15 Est GFR (Non-Af Amer) > 60 11/20/17 06:15 Random Glucose 115 mg/dL (65-105) H 11/20/17 06:15 Calcium 8.2 mg/dL (8.4-10.2) L 11/20/17 06:15 Total Bilirubin 0.6 mg/dl (0.2-1.3) 11/17/17 05:30 AST 74 U/L (14-36) H 11/17/17 05:30 ALT 90 U/L (9-52) H 11/17/17 05:30 Alkaline Phosphatase 75 U/L (38-126) 11/17/17 05:30 Total Protein 5.6 G/DL (6.3-8.2) L 11/17/17 05:30 Albumin 3.1 g/dL (3.5-5.0) L 11/17/17 05:30 Globulin 2.5 gm/dL (2.2-3.9) 11/17/17 05:30 Albumin/Globulin Ratio 1.2 (1.0-2.1) 11/17/17 05:30 Fluid Crystals Negative (NEGATIVE) 11/19/17 14:43 Blood Type O POSITIVE 11/19/17 14:35 Antibody Screen Negative 11/19/17 14:35 Crossmatch See Detail 11/19/17 14:35 BBK History Checked Patient has bt 11/19/17 14:35 - Hospital Course Hospital Course: This is a 52 y/o female admitted after I and D and spacer insertion of the left knee. Discharge Plan - Follow Up Plan Condition: GOOD Disposition: HOME/ ROUTINE Referrals: Umberto Hernández MD [Primary Care Provider] -
[2017-11-20] MEDS: Pantoprazole 40 mg EC Tab PO SCH (09:52)
[2017-11-20] MEDS: Naproxen 500 MG TAB PO SCH ×2 (09:52→16:57)
[2017-11-20] MEDS: IRON SUCROSE IVPB SCH (09:55)
[2017-11-20] MEDS: SODIUM CHLORIDE IVPB SCH (09:55)
[2017-11-20] MEDS: oxyCODONE 10 mg ER Tab (oxyCONTIN) PO SCH ×2 (10:01→21:10)
[2017-11-20] MEDS: Potassium Chloride 20 mEq ER Tab PO SCH (10:03)
[2017-11-20] MEDS: Bacitracin OINT 15GM TOP SCH ×2 (10:05→18:27)
[2017-11-20] MEDS ORDERED: Lidocaine 1% 5ml Abboject IV ONE (11:50)
--- NOTE | 2017-11-20 12:27 | PCM.SURG1 ---
Surgeon's Initial Post Op Note - Surgeon's Notes Surgeon: Brian Rajput MD [employer] Supervisor: NONE Type of Anesthesia: Local Pre-Operative Diagnosis: Poor venous access Operative Findings: US showed a patent right basilic vein. Post-Operative Diagnosis: Poor venous access Operation Performed: Single lumen picc placement right arm, 37 CM. Tip is in the SVC Specimen/Specimens Removed: NONE Estimated Blood Loss: EBL {In ML}: 2 Blood Products Given: N/A Drains Used: No Drains Post-Op Condition: Fair Date of Surgery/Procedure: 11/20/17 Time of Surgery/Procedure: 12:25
[2017-11-20] MEDS: Lactated Ringer's 1,000 ML IV SCH (13:12)
--- NOTE | 2017-11-20 13:22 | VASCULAR ---
PROCEDURE: Date of procedure: 11/20/2017 Procedure: 1. Placement of a right arm PICC with ultrasound and fluoroscopic guidance, CPT 03616 2. PICC tip confirmation with spot radiograph and is in the superior vena cava Medications: 1 percent lidocaine Total Fluoro time: 3.2 seconds Radiation: 0.59 MGy EBL: 2 cc HISTORY: Infection requiring long-term IV antibiotics TECHNIQUE: Following informed consent and procedure time-out, the patient was placed supine on the interventional table and the right arm prepped and draped in the usual sterile fashion. Ultrasound showed a patent and compressible right basilic vein. After the skin was anesthetized with lidocaine, the basilic vein was accessed with micro micropuncture technique using ultrasound guidance. A guidewire was then advanced under fluoroscopic guidance into the superior vena cava. An image documenting ultrasound guidance for vascular access was permanently saved. The length of the single-lumen 4 Israeli PICC was trimmed to 37 centimeters and advanced through a peel-away sheath. The PICC was position with tip of PICC confirm a spot radiograph the superior vena cava. The PICC was secured to the patient's skin. The PICC was flushed. A bio patch and sterile dressing was applied. IMPRESSION: Placement of a single-lumen 4 Israeli PICC trimmed to 37 centimeters via right basilic vein. The tip of the PICC is confirmed with spot radiograph and is in the superior vena cava.
--- NOTE | 2017-11-20 23:16 | PN ---
Copied To: Micheline Kim MD Attending MD: Micheline Kim MD DATE: 11/20/2017 TIME: 6:10 p.m. SUBJECTIVE: The patient is postoperative day #4, status post revision left knee arthroplasty, removal of hardware and antibiotic spacer placement. The patient is comfortable, examined at bedside. Not in acute distress. Denies any fever or chills. Denies any paresthesias, motor weakness. OBJECTIVE: VITAL SIGNS: The patient is afebrile and stable. The patient's microbiology, one of the knee cultures are growing gram negative rods. The patient's incision is clean, dry, and intact. Neurovascularly, intact distally. ASSESSMENT: A 52-year-old female, postoperative day # 4, status post removal of hardware of the left knee and antibiotic spacer replacement. PLAN: The patient would be weight bearing as tolerated and a knee immobilizer brace. We will continue to monitor, the final culture results. patient's PICC line is placed and antibiotics per ID recommendation. Micheline Kim MD SIL[facility]
[2017-11-21] MEDS: Cefepime 1 GM in Sodium Chloride 0.9% 100 ML IVPB SCH ×2 (00:07→08:36)
[2017-11-21] MEDS: oxyCODONE 10 mg ER Tab (oxyCONTIN) PO SCH ×3 (01:00→21:00)
[2017-11-21] MEDS: DAPTOmycin 500 MG in Sodium Chloride 0.9% 100 ML IVPB SCH (03:03)
[2017-11-21] MEDS: oxyCODONE 10 mg Immediate Release Tab PO PRN ×3 (05:16→18:25)
[2017-11-21] MEDS: Bacitracin OINT 15GM TOP SCH ×2 (08:30→17:02)
[2017-11-21] MEDS: Naproxen 500 MG TAB PO SCH ×2 (08:32→17:04)
[2017-11-21] MEDS: Potassium Chloride 20 mEq ER Tab PO SCH (08:32)
[2017-11-21] MEDS: Pantoprazole 40 mg EC Tab PO SCH (08:35)
[2017-11-21] MEDS: IRON SUCROSE IVPB SCH (08:36)
[2017-11-21] MEDS: SODIUM CHLORIDE IVPB SCH (08:36)
[2017-11-21 11:12] LABS: HEMOGLOBIN 9.4 g/dL (12.0-16.0); MEAN CELL VOLUME 84.3 fl (81.0-99.0); MEAN CORPUSCULAR HEMOGLOBIN 29.2 pg (27.0-31.0); MEAN CORPUSCULAR HGB CONC 34.6 g/dL (33.0-37.0); RBC 3.22 Mil/uL (3.80-5.20); RED CELL DISTRIBUTION WIDTH 14.6 % (11.5-14.5); WHITE BLOOD COUNT 8.7 K/uL (4.8-10.8)
[2017-11-21] MEDS ORDERED: Cefepime 1 GM in Sodium Chloride 0.9% 100 ML IVPB SCH (13:15)
[2017-11-21 14:16] LABS: BLOOD UREA NITROGEN 6 mg/dl (7-17); CALCIUM 8.8 mg/dL (8.4-10.2); GFR NON-AFRICAN AMERICAN > 60
--- NOTE | 2017-11-21 15:56 | US ---
Date of service: 11/21/2017 HISTORY: R/o DVT . PRIORS: None. FINDINGS: 2-D, color and duplex Doppler analysis of the lower extremity venous circulation using routine protocol from the femoral veins through the popliteal veins. Venous compressibility: Normal. Flow and augmentation patterns: Normal. Visualized veins upper third of calf: Normal. Willis cyst: Small complex collection measuring approximately 2.5 x 1.7 x 1.9 cm. Immediately adjacent to this, there is a vascular structure measuring roughly 2.1 x 2.8 cm showing a partial internal septation and arterial flow by duplex Doppler interrogation. This is suspicious for a pseudoaneurysm. The collection may represent a small hematoma. It is not likely to represent a popliteal cyst. IMPRESSION: No sonographic or Doppler evidence for DVT in left lower extremity. 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 Small complex collection immediately adjacent to this may represent a small hematoma. Findings were discussed by telephone with Dr. Cates at 3:47 p.m. on 11/21/2017.
--- NOTE | 2017-11-21 16:58 | CP.PCM.PN ---
Subjective - Date & Time of Evaluation Date of Evaluation: 11/21/17 Time of Evaluation: 15:00 - Subjective Subjective: Patient seen and examined at bedside comfortable. Pain well controlled. PICC line inserted today. No other complaints. Denies CP/SOB/N/V/D/fever. Objective - Vital Signs/Intake and Output Vital Signs (last 24 hours): Temp Pulse Resp BP Pulse Ox 99 F 90 18 157/92 H 98 11/21/17 16:31 11/21/17 16:31 11/21/17 16:31 11/21/17 16:31 11/21/17 16:31 - Medications Medications: Current Medications Acetaminophen (Tylenol 325mg Tab) 325 mg PO Q4 PRN PRN Reason: pain1-3 Amlodipine Besylate (Norvasc) 5 mg PO DAILY [facility] Last Admin: 11/21/17 08:35 Dose: 5 mg Aspirin (Aspirin) 325 mg PO BID [facility] Last Admin: 11/21/17 08:30 Dose: 325 mg Bacitracin (Bacitracin Oint) 1 applic TOP BID [facility] Last Admin: 11/21/17 08:30 Dose: 1 applic Carvedilol (Coreg) 25 mg PO BID [facility] Last Admin: 11/21/17 08:31 Dose: 25 mg Cyclobenzaprine HCl (Flexeril) 10 mg PO HS PRN PRN Reason: Muscle spasm Docusate Sodium (Colace) 100 mg PO TID [facility] Last Admin: 11/21/17 12:51 Dose: 100 mg Ferrous Sulfate (Feosol) 325 mg PO TID [facility] Last Admin: 11/21/17 12:51 Dose: 325 mg Lactated Ringer's (Lactated Ringer's) 1,000 mls @ 100 mls/hr IV .Q10H [facility] Last Admin: 11/20/17 13:12 Dose: Not Given Daptomycin 500 mg/ Sodium (Chloride) 100 mls @ 100 mls/hr IVPB DAILY@0300 [facility] PRN Reason: Protocol Stop: 11/22/17 00:31 Last Admin: 11/21/17 03:03 Dose: 100 mls/hr Iron Sucrose 100 mg/ Sodium (Chloride) 105 mls @ 105 mls/hr IVPB DAILY [facility] Last Admin: 11/21/17 08:36 Dose: 105 mls/hr Cefepime HCl 1 gm/ Sodium (Chloride) 100 mls @ 100 mls/hr IVPB DAILY [facility] PRN Reason: Protocol Losartan Potassium (Cozaar) 50 mg PO DAILY [facility] Last Admin: 11/21/17 08:31 Dose: 50 mg Naproxen (Naproxen) 500 mg PO BID [facility] Last Admin: 11/21/17 08:32 Dose: 500 mg Oxycodone HCl (Oxycodone Immediate Release Tab) 5 mg PO Q4 PRN PRN Reason: pain4-7 Last Admin: 11/18/17 04:11 Dose: 5 mg Oxycodone HCl (Oxycodone Immediate Release Tab) 10 mg PO Q4 PRN PRN Reason: Pain, severe (8-10) Last Admin: 11/21/17 13:45 Dose: 10 mg Oxycodone HCl (Oxycontin Extended Release Tab) 10 mg PO Q12 [facility] Stop: 11/24/17 00:46 Last Admin: 11/21/17 08:29 Dose: 10 mg Pantoprazole Sodium (Protonix Ec Tab) 40 mg PO DAILY [facility] Last Admin: 11/21/17 08:35 Dose: 40 mg Potassium Chloride (K-Dur 20 Meq Er Tab) 20 meq PO DAILY [facility] Last Admin: 11/21/17 08:32 Dose: 20 meq Zolpidem Tartrate (Ambien) 5 mg PO HS PRN PRN Reason: Insomnia Last Admin: 11/20/17 23:48 Dose: 5 mg - Labs Labs: 11/21/17 11:08 11/21/17 13:55 - Extremities Exam Additional comments: L knee: knee imm intact, Dressings CDI drain intact, wound CDI with nylon sutures sensation intact SP/DP/TN motor intact EHL/FHL/TA/G pedal pulses intact comps soft NT Assessment and Plan (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 Kim in agreement Status: Acute
[2017-11-22] MEDS: Cefepime 1 GM in Sodium Chloride 0.9% 100 ML IVPB SCH ×3 (00:18→16:20)
[2017-11-22] MEDS ORDERED: DAPTOmycin 500 MG in Sodium Chloride 0.9% 100 ML IVPB SCH (03:00)
[2017-11-22] MEDS: oxyCODONE 10 mg Immediate Release Tab PO PRN ×3 (05:37→16:18)
[2017-11-22 08:12] VITALS: RESP 20
[2017-11-22] MEDS: oxyCODONE 10 mg ER Tab (oxyCONTIN) PO SCH ×2 (09:14→20:18)
[2017-11-22] MEDS: Bacitracin OINT 15GM TOP SCH ×2 (09:15→16:18)
[2017-11-22] MEDS: Potassium Chloride 20 mEq ER Tab PO SCH (09:17)
[2017-11-22] MEDS: Pantoprazole 40 mg EC Tab PO SCH (09:18)
[2017-11-22] MEDS: Naproxen 500 MG TAB PO SCH ×2 (09:18→16:20)
[2017-11-22] MEDS: SODIUM CHLORIDE IVPB SCH (09:25)
[2017-11-22] MEDS: IRON SUCROSE IVPB SCH (09:25)
--- NOTE | 2017-11-22 12:09 | CP.PCM.PN ---
Subjective - Date & Time of Evaluation Date of Evaluation: 11/22/17 Time of Evaluation: 08:00 - Subjective Subjective: Patient seen and examined at bedside. C/o burning/pulling pain from back of knee radiating to foot. Discharge held due to abnormal LE ultrasound. Denies CP/ SOB/N/V/D/fever/ Objective - Vital Signs/Intake and Output Vital Signs (last 24 hours): Temp Pulse Resp BP Pulse Ox 98.2 F 80 20 129/79 98 11/22/17 08:11 11/22/17 09:19 11/22/17 08:11 11/22/17 09:19 11/22/17 08:11 - Medications Medications: Current Medications Acetaminophen (Tylenol 325mg Tab) 325 mg PO Q4 PRN PRN Reason: pain1-3 Amlodipine Besylate (Norvasc) 5 mg PO DAILY [facility] Last Admin: 11/22/17 09:17 Dose: 5 mg Aspirin (Aspirin) 325 mg PO BID [facility] Last Admin: 11/22/17 09:15 Dose: 325 mg Bacitracin (Bacitracin Oint) 1 applic TOP BID [facility] Last Admin: 11/22/17 09:15 Dose: 1 applic Carvedilol (Coreg) 25 mg PO BID [facility] Last Admin: 11/22/17 09:16 Dose: 25 mg Cyclobenzaprine HCl (Flexeril) 10 mg PO HS PRN PRN Reason: Muscle spasm Last Admin: 11/21/17 21:58 Dose: 10 mg Docusate Sodium (Colace) 100 mg PO TID [facility] Last Admin: 11/22/17 09:15 Dose: 100 mg Ferrous Sulfate (Feosol) 325 mg PO TID [facility] Last Admin: 11/22/17 09:17 Dose: 325 mg Lactated Ringer's (Lactated Ringer's) 1,000 mls @ 100 mls/hr IV .Q10H [facility] Last Admin: 11/20/17 13:12 Dose: Not Given Iron Sucrose 100 mg/ Sodium (Chloride) 105 mls @ 105 mls/hr IVPB DAILY [facility] Last Admin: 11/22/17 09:25 Dose: 105 mls/hr Cefepime HCl 1 gm/ Sodium (Chloride) 100 mls @ 100 mls/hr IVPB Q8 [facility] PRN Reason: Protocol Last Admin: 11/22/17 09:19 Dose: 100 mls/hr Daptomycin 500 mg/ Sodium (Chloride) 100 mls @ 100 mls/hr IVPB DAILY@0300 [facility] PRN Reason: Protocol Stop: 11/27/17 03:01 Last Admin: 11/22/17 02:24 Dose: 100 mls/hr Losartan Potassium (Cozaar) 50 mg PO DAILY [facility] Last Admin: 11/22/17 09:19 Dose: 50 mg Naproxen (Naproxen) 500 mg PO BID [facility] Last Admin: 11/22/17 09:18 Dose: 500 mg Oxycodone HCl (Oxycodone Immediate Release Tab) 5 mg PO Q4 PRN PRN Reason: pain4-7 Last Admin: 11/18/17 04:11 Dose: 5 mg Oxycodone HCl (Oxycodone Immediate Release Tab) 10 mg PO Q4 PRN PRN Reason: Pain, severe (8-10) Last Admin: 11/22/17 11:13 Dose: 10 mg Oxycodone HCl (Oxycontin Extended Release Tab) 10 mg PO Q12 [facility] Stop: 11/24/17 00:46 Last Admin: 11/22/17 09:14 Dose: 10 mg Pantoprazole Sodium (Protonix Ec Tab) 40 mg PO DAILY [facility] Last Admin: 11/22/17 09:18 Dose: 40 mg Potassium Chloride (K-Dur 20 Meq Er Tab) 20 meq PO DAILY [facility] Last Admin: 11/22/17 09:17 Dose: 20 meq Zolpidem Tartrate (Ambien) 5 mg PO HS PRN PRN Reason: Insomnia Last Admin: 11/21/17 21:58 Dose: 5 mg - Labs Labs: 11/21/17 11:08 11/21/17 13:55 - Extremities Exam Additional comments: L knee: knee imm intact, Dressings CDI drain intact, wound CDI with nylon sutures sensation intact SP/DP/TN motor intact EHL/FHL/TA/G pedal pulses intact comps soft NT Assessment and Plan (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 Kim recommends Surgery and vascular consult, and a CTA LLE to evaluate L popliteal aneurysm -PT/OT NWB LLE -maintain knee immobilizer -abx as per ID -above d/w Dr. Kim in agreement Status: Acute Radiology Interpretation - Notes: Notes:: Accession No. : [id number] Patient Name / ID : BRYAN MEDRANO M / [id number] Exam Date : 11/21/2017 11:13:49 ( Approved ) Study Comment : Sex / Age : F / 52Y Creator : Gino Martinez MD Dictator : Gino Martinez MD Produce Service Team Member : Jumbo Operator : Gino Martinez MD Approver2 : Report Date : 11/21/2017 15:50:11 My Comment : Date of service: 11/21/2017 HISTORY: R/o DVT . PRIORS: None. FINDINGS: 2-D, color and duplex Doppler analysis of the lower extremity venous circulation using routine protocol from the femoral veins through the popliteal veins. Venous compressibility: Normal. Flow and augmentation patterns: Normal. Visualized veins upper third of calf: Normal. Willis cyst: Small complex collection measuring approximately 2.5 x 1.7 x 1.9 cm. Immediately adjacent to this, there is a vascular structure measuring roughly 2.1 x 2.8 cm showing a partial internal septation and arterial flow by duplex Doppler interrogation. This is suspicious for a pseudoaneurysm. The collection may represent a small hematoma. It is not likely to represent a popliteal cyst. IMPRESSION: No sonographic or Doppler evidence for DVT in left lower extremity. 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 Small complex collection immediately adjacent to this may represent a small hematoma.
[2017-11-22] MEDS ORDERED: Sodium Chloride 0.9% 50 ML IV ONE (12:36)
[2017-11-22] MEDS ORDERED: Iodixanol 320 MG/ML 100 ML BOTTLE IV ONE (12:36)
[2017-11-22 16:15] LABS: HEMOGLOBIN 9.9 g/dL (12.0-16.0); MEAN CELL VOLUME 85.4 fl (81.0-99.0); MEAN CORPUSCULAR HEMOGLOBIN 29.1 pg (27.0-31.0); MEAN CORPUSCULAR HGB CONC 34.1 g/dL (33.0-37.0); RBC 3.39 Mil/uL (3.80-5.20); RED CELL DISTRIBUTION WIDTH 14.3 % (11.5-14.5); WHITE BLOOD COUNT 8.5 K/uL (4.8-10.8)
[2017-11-22 16:28] LABS: INR 1.1; PROTHROMBIN TIME 12.7 Seconds (9.8-13.1)
--- NOTE | 2017-11-22 18:07 | CP.PCM.PN ---
Subjective - Date & Time of Evaluation Date of Evaluation: 11/22/17 Time of Evaluation: 10:20 - Subjective Subjective: 52 y/o F was evaluated and examined by bedside with Dr Cates. Pt c/o of L leg pain, more predominantly knee pain, that is constant and not completely alleviated with given analgesics. Pt afebrile, tolerating PO. --US doppler showed suspicion for pseudoaneurysm in the L popliteal fossa. Objective - Vital Signs/Intake and Output Vital Signs (last 24 hours): Temp Pulse Resp BP Pulse Ox 97.6 F 60 20 129/69 95 11/22/17 17:27 11/22/17 17:27 11/22/17 17:27 11/22/17 17:27 11/22/17 17:27 - Medications Medications: Current Medications Acetaminophen (Tylenol 325mg Tab) 325 mg PO Q4 PRN PRN Reason: pain1-3 Amlodipine Besylate (Norvasc) 5 mg PO DAILY [facility] Last Admin: 11/22/17 09:17 Dose: 5 mg Aspirin (Aspirin) 325 mg PO BID [facility] Last Admin: 11/22/17 16:18 Dose: 325 mg Bacitracin (Bacitracin Oint) 1 applic TOP BID [facility] Last Admin: 11/22/17 16:18 Dose: 1 applic Carvedilol (Coreg) 25 mg PO BID [facility] Last Admin: 11/22/17 16:19 Dose: 25 mg Cyclobenzaprine HCl (Flexeril) 10 mg PO HS PRN PRN Reason: Muscle spasm Last Admin: 11/21/17 21:58 Dose: 10 mg Docusate Sodium (Colace) 100 mg PO TID [facility] Last Admin: 11/22/17 16:19 Dose: 100 mg Ferrous Sulfate (Feosol) 325 mg PO TID [facility] Last Admin: 11/22/17 16:19 Dose: 325 mg Lactated Ringer's (Lactated Ringer's) 1,000 mls @ 100 mls/hr IV .Q10H [facility] Last Admin: 11/20/17 13:12 Dose: Not Given Iron Sucrose 100 mg/ Sodium (Chloride) 105 mls @ 105 mls/hr IVPB DAILY [facility] Last Admin: 11/22/17 09:25 Dose: 105 mls/hr Cefepime HCl 1 gm/ Sodium (Chloride) 100 mls @ 100 mls/hr IVPB Q8 [facility] PRN Reason: Protocol Last Admin: 11/22/17 16:20 Dose: 100 mls/hr Daptomycin 500 mg/ Sodium (Chloride) 100 mls @ 100 mls/hr IVPB DAILY@0300 [facility] PRN Reason: Protocol Stop: 11/27/17 03:01 Last Admin: 11/22/17 02:24 Dose: 100 mls/hr Losartan Potassium (Cozaar) 50 mg PO DAILY [facility] Last Admin: 11/22/17 09:19 Dose: 50 mg Naproxen (Naproxen) 500 mg PO BID [facility] Last Admin: 11/22/17 16:20 Dose: 500 mg Oxycodone HCl (Oxycodone Immediate Release Tab) 5 mg PO Q4 PRN PRN Reason: pain4-7 Last Admin: 11/18/17 04:11 Dose: 5 mg Oxycodone HCl (Oxycodone Immediate Release Tab) 10 mg PO Q4 PRN PRN Reason: Pain, severe (8-10) Last Admin: 11/22/17 16:18 Dose: 10 mg Oxycodone HCl (Oxycontin Extended Release Tab) 10 mg PO Q12 [facility] Stop: 11/24/17 00:46 Last Admin: 11/22/17 09:14 Dose: 10 mg Pantoprazole Sodium (Protonix Ec Tab) 40 mg PO DAILY [facility] Last Admin: 11/22/17 09:18 Dose: 40 mg Potassium Chloride (K-Dur 20 Meq Er Tab) 20 meq PO DAILY [facility] Last Admin: 11/22/17 09:17 Dose: 20 meq Zolpidem Tartrate (Ambien) 5 mg PO HS PRN PRN Reason: Insomnia Last Admin: 11/21/17 21:58 Dose: 5 mg - Labs Labs: 11/22/17 16:00 11/21/17 13:55 PT 12.7 Seconds (9.8-13.1) 11/22/17 16:00 INR 1.1 11/22/17 16:00 - Constitutional Appears: Well, No Acute Distress - Head Exam Head Exam: NORMAL INSPECTION - Eye Exam Eye Exam: EOMI - ENT Exam ENT Exam: Mucous Membranes Moist - Neck Exam Neck Exam: Full ROM. absent: Meningismus - Respiratory Exam Respiratory Exam: Clear to Ausculation Bilateral, NORMAL BREATHING PATTERN - Cardiovascular Exam Cardiovascular Exam: +S1, +S2 - GI/Abdominal Exam GI & Abdominal Exam: Soft, Normal Bowel Sounds. absent: Distended, Guarding, Tenderness - Extremities Exam Extremities Exam: Full ROM Additional comments: R leg on a immobilizer. - Neurological Exam Neurological Exam: Alert, Awake, Oriented x3 Assessment and Plan - Assessment and Plan (Free Text) Assessment: 52 y/o F was admitted for evaluation and management s/p Left knee TKR removal of hardware, I&D and placement of spacer. Admission complicated by discovery of L popliteal pseudoaneurysm. --Pt educated on the need for further investigation and specialized management. --Pt agreed to be transfer to [facility] for Vascular Surgery evaluation. --Continue management as ordered.
[2017-11-22 22:02] VITALS: BP 126/73; PULSE 80; TEMP 97.7; O2SAT 97
== END 2017-11-22 22:05 | disposition short-term general hospital (02) | DRG 465 ==
LOC: H.OPSURG 06:40 → H.MEDSURG1 17:11
PROVIDERS: ADMIT Family Medicine; ATTEND Family Medicine
PROC: 0SBD0ZZ Excision of Left Knee Joint, Open Approach (ICD-10-PCS; 2017-11-16)
PROC: 0SHD08Z Insertion of Spacer into Left Knee Joint, Open Approach (ICD-10-PCS; 2017-11-16)
PROC: 0SPD0JZ Removal of Synthetic Substitute from Left Knee Joint, Open Approach (ICD-10-PCS; principal; 2017-11-16 12:15)
PROC: 30233N1 Transfusion of Nonautologous Red Blood Cells into Peripheral Vein, Percutaneous Approach (ICD-10-PCS; 2017-11-19)
PROC: 02HV33Z Insertion of Infusion Device into Superior Vena Cava, Percutaneous Approach (ICD-10-PCS; 2017-11-20)
PROC: B518ZZA Fluoroscopy of Superior Vena Cava, Guidance (ICD-10-PCS; 2017-11-20)
PROC: 3E04329 Introduction of Other Anti-infective into Central Vein, Percutaneous Approach (ICD-10-PCS; 2017-11-20)
DX: T84.54XA Infection and inflammatory reaction due to internal left knee prosthesis, initial encounter (principal); M23.52 Chronic instability of knee, left knee; M25.462 Effusion, left knee; I10 Essential (primary) hypertension; Z96.652 Presence of left artificial knee joint; Z87.891 Personal history of nicotine dependence

== ENCOUNTER 2018-01-23 11:56 | Emergency (ER) | payer OTHER, BC ==
[2018-01-23 11:56] VITALS: BMI 34.2
[2018-01-23 12:12] VITALS: TEMP 98.9; O2SAT 99
--- NOTE | 2018-01-23 12:57 | ED PDOC ---
Lower Extremity Pain/Injury Time Seen by Provider: 01/23/18 12:14 Chief Complaint (Nursing): Lower Extremity Problem/Injury Chief Complaint (Provider): Lower Extremity Problem/Injury History Per: Patient History/Exam Limitations: no limitations Onset/Duration Of Symptoms: Days Current Symptoms Are (Timing): Still Present Additional Complaint(s): Dee Vera is a 52 year old female with a past medical history of hypertension who is presenting to the ED for evaluation of left knee swelling. Patient states that she was sent from Dr. Hayward office and was advised that he would meet her here to drain fluid from knee. She notes that she had a total knee replacement on November 16 and afterwards she developed a joint infection and has had a spacer in her knee since. Patient states that she took antibiotics for 6-8 weeks after the procedure and notes she recently completed them, which is when the swelling started. She also adds that the joint feels warm to touch. Patient denies any fever or chills and offers no other medical complaints at this time. PMD: Umberto Hernández Orthopedic: Dr. Kim Past Medical History Reviewed: Historical Data, Nursing Documentation, Vital Signs Vital Signs: Last Vital Signs Temp 98.9 F 01/23/18 12:08 Pulse 87 01/23/18 12:08 Resp 16 01/23/18 12:08 BP 158/92 H 01/23/18 12:08 Pulse Ox 99 01/23/18 12:08 - Medical History PMH: HTN, Hypercholesterolemia, Migraine - Surgical History Other surgeries: 2 procedures to left knee - Family History Family History: States: Unknown Family Hx - Social History Current smoker - smoking cessation education provided: No Alcohol: None Drugs: Denies - Home Medications Home Medications: Ambulatory Orders Medication Instructions Recorded RX: Apixaban [Eliquis] 5 mg PO BID #60 tab 11/30/17 RX: Carvedilol [Coreg] 25 mg PO BID #60 tab 11/30/17 RX: Clopidogrel [Plavix] 75 mg PO DAILY #30 tab 11/30/17 RX: Losartan [Cozaar] 50 mg PO DAILY #30 tab 11/30/17 RX: Rosuvastatin Calcium [Crestor] 10 mg PO DAILY #30 tab 11/30/17 RX: amLODIPine [Norvasc] 5 mg PO DAILY #30 tab 11/30/17 Cefpodoxime [Vantin] 200 mg PO BID #4 tab 01/08/18 RX: Lactobacillus Acidophilus 1 cap PO BID #10 cap 01/08/18 [Bacid Acidophilus] - Allergies Allergies/Adverse Reactions: Allergies Allergy/AdvReac Type Severity Reaction Status Date / Time No Known Allergies Allergy Verified 01/23/18 12:08 Review of Systems ROS Statement: Except As Marked, All Systems Reviewed And Found Negative Constitutional: Negative for: Fever, Chills Musculoskeletal: Positive for: Leg Pain (left knee swelling and warmth) Physical Exam - Reviewed Nursing Documentation Reviewed: Yes Vital Signs Reviewed: Yes - Physical Exam Comments: GENERAL APPEARANCE: Patient is awake, alert, oriented x 3, in no acute distress. Resting comfortably. SKIN: Warm, dry; (-) cyanosis. NECK: Supple, FROM CHEST AND RESPIRATORY: (-) rales, (-) rhonchi, (-) wheezes; breath sounds equal bilaterally. Respirations even and nonlabored. HEART AND CARDIOVASCULAR: (-) irregularity EXTREMITIES: (-) deformity, (+) distal pulses. Knee immobilizer in place on left leg. (+) moderate effusion of left knee. (+) warmth to touch. (+) well healed vertically oriented surgical incision to anterior left knee and well healed diagonally oriented scar to medial left knee. (-) ROM of left knee. (-) calf tenderness (-) ecchymosis. (+) Full ROM of ankle and foot. Distal sensation intact. NEURO AND PSYCH: Mental status as above; (-) focal findings. Speech: clear. (-) facial asymmetry - Laboratory Results Result Diagrams: 01/23/18 13:55 - ECG O2 Sat by Pulse Oximetry: 99 (RA) Pulse Ox Interpretation: Normal Medical Decision Making Medical Decision Making: Time: 12:20 Impression: Acute knee effusion Plan: --Consult Dr. Kim 12:[address] Kim who states he will come see patient in the ED and perform joint aspiration. 13:30 Dr. Kim at bedside. 13:45 Dr. Kim unable to obtain fluid from knee joint. He recommends a CBC, ESR, and CRP. He advises that patient should follow up with him in his office and states that no additional medications are needed. 1500 Repeat BP: 159 / 90 Patient reports she has not taken her BP medications yet today and states she will take them upon arrival home. Denies any complaints related to elevated BP reading in ED. Labs reviewed. ESR slightly elevated. CBC with no leukocytosis. On exam, patient remains AAOx3, in no acute distress. Lungs clear to auscultation, cardiac RRR, repeat neuro exam shows no focal findings. Vitals stable. Lab /Diagnostic results d/w the patient in great detail. Diagnosis of acute knee pain/effusion d/w the patient. RICE encouraged. Based on history, exam and diagnostic results, plan will be for outpatient follow up with Dr Kim. Patient instructed to follow-up with pmd / referral provided / the clinic in 1- 2 days without fail. Return to the emergency room at any time for any new or worsening symptoms. Patient states she fully agrees with and understands discharge instructions. States that she agrees with the plan and disposition. Verbalized and repeated discharge instructions and plan. I have given the patient opportunity to ask any additional questions. Scribe Attestation: Documented by Oriana Wheeler, acting as a scribe for Aditi Ybarra PA-C. Provider Scribe Attestation: All medical record entries made by the Scribe were at my direction and personally dictated by me. I have reviewed the chart and agree that the record accurately reflects my personal performance of the history, physical exam, medical decision making, and the department course for this patient. I have also personally directed, reviewed, and agree with the discharge instructions and disposition. Disposition - Clinical Impression Clinical Impression: Knee effusion, left, Knee pain, acute - Patient ED Disposition Is Patient to be Admitted: No Discussed With .: Micheline Kim Doctor Will See Patient In The: ED Counseled Patient/Family Regarding: Studies Performed, Diagnosis, Need For Followup - Disposition Referrals: Micheline Kim MD [Family Provider] - Disposition: Routine/Home Disposition Time: 15:00 Condition: STABLE Additional Instructions: FOLLOW UP IN OFFICE WITH DR KIM. The emergency medical care you received today was directed at your acute symptoms. If you were prescribed any medication, please fill it and take as directed. It may take several days for your symptoms to resolve. Return to the Emergency Department if your symptoms worsen, do not improve, or if you have any other problems. Please contact your doctor in 2 days for re-evaluation and follow up / or call one of the physicians/clinics you have been referred to that are listed on the Patient Visit Information form that is included in your discharge packet. Bring any paperwork you were given at discharge with you along with any medications you are taking to your follow up visit. Our treatment cannot replace ongoing medical care by a primary care provider (PCP) outside of the emergency department. Instructions: Total Knee Replacement , Knee Pain Forms: [place] (Beninese) Print Language: ARMENIAN - POA Present On Arrival: None Results - Lab Results Lab Results: 01/23/18 13:55 WBC 8.2 RBC 3.95 Hgb 10.7 L Hct 31.8 L MCV 80.7 L D MCH 27.2 MCHC 33.7 RDW 14.6 H Plt Count 228 MPV 9.9 Neut % (Auto) 62.6 Lymph % (Auto) 22.9 [place] % (Auto) 10.4 H Eos % (Auto) 3.3 Baso % (Auto) 0.8 Neut # (Auto) 5.1 Lymph # (Auto) 1.9 [place] # (Auto) 0.8 Eos # (Auto) 0.3 Baso # (Auto) 0.1 ESR 41 H
[2018-01-23] MEDS ORDERED: Lidocaine 1% Inj (20ml) IJ ONE (13:04)
[2018-01-23 14:12] LABS: BASO # 0.1 K/uL (0.0-0.2); BASO % 0.8 % (0.0-2.0); EOS # 0.3 K/uL (0.0-0.7); EOS % 3.3 % (0.0-4.0); HEMOGLOBIN 10.7 g/dL (12.0-16.0); LYMPH # 1.9 K/uL (1.0-4.3); LYMPH % 22.9 % (20.0-40.0); MEAN CELL VOLUME 80.7 fl (81.0-99.0); MEAN CORPUSCULAR HEMOGLOBIN 27.2 pg (27.0-31.0); MEAN CORPUSCULAR HGB CONC 33.7 g/dL (33.0-37.0); MEAN PLATELET VOLUME 9.9 fl (7.2-11.7); MONO # 0.8 K/uL (0.0-0.8); MONO % 10.4 % (0.0-10.0); NEUT # 5.1 K/uL (1.8-7.0); NEUT % 62.6 % (50.0-75.0); NRBC % 0.1 % (0.0-0.0); RBC 3.95 Mil/uL (3.80-5.20); RED CELL DISTRIBUTION WIDTH 14.6 % (11.5-14.5); WHITE BLOOD COUNT 8.2 K/uL (4.8-10.8)
[2018-01-23 15:33] VITALS: BP 159/90; PULSE 82; RESP 18
== END 2018-01-23 15:17 | disposition home or self-care (01) ==
LOC: H.ER 11:56
DX: M25.462 Effusion, left knee (principal); E78.00 Pure hypercholesterolemia, unspecified; I10 Essential (primary) hypertension; Z79.01 Long term (current) use of anticoagulants